=== PATIENT | female | born 1995 | race Caucasian/White ===

== ENCOUNTER 2019-05-22 08:32 | Inpatient (IN) ==
[2019-05-22 08:18] LABS: Basophils % 0.3 %; Eosinophils # 0.1 K/mcL (0.0-0.6); Eosinophils % 0.7 %; Hematocrit 34.6 % (35.3-44.9); Lymphocytes # 1.6 K/mcL (0.6-4.6); Lymphocytes % 16.3 %; Mean Corpuscular HGB Conc 34.7 g/dL (31.6-35.5); Mean Corpuscular Volume 89.4 fL (83.0-100.0); Mean Platelet Volume 10.3 fL (9.4-12.4); Monocytes # 0.8 K/mcL (0.0-1.3); Neutrophils # 7.3 K/mcL (1.6-8.9); Platelet Count 179 K/mcL (140-400); Red Blood Count 3.87 M/mcL (3.82-4.97); Red Cell Distribution Width 12.6 % (11.5-14.5); Segmented Neutrophils % 73.7 %; White Blood Count 9.9 K/mcL (4.3-11.1)
[~2019-05-22 08:32] MED LIST: Famotidine 20 MG/2 ML VIAL IVP PRN; Lidocaine 1% 20 ML MDV ID PRN; Metoclopramide 10 MG/2 ML VIAL IVP PRN; Naloxone 0.4 MG/ML INJ IVP PRN; Ondansetron 4 MG/2 ML VIAL IVP PRN; Oxytocin 20 units/ LR 1000 mL 20 UNIT/1,000 ML BAG IVC SCH
[2019-05-22] MEDS ORDERED: *HR* Nalbuphine 10 MG/ML AMPUL IV PRN (08:38)
[2019-05-22] MEDS: Ringers Solution, Lactated 1,000 ML IVC SCH ×2 (09:05→13:59)
[2019-05-22 09:23] LABS: Amphetamine Screen,Urine Negative ng/mL (Cutoff=1000); Barbiturate Screen,Urine Negative ng/mL (Cutoff=200); Benzodiazepines Screen,Urine Negative ng/mL (Cutoff=200); Cannabinoid Screen,Urine Negative ng/mL (Cutoff = 50); Cocaine Screen,Urine Negative ng/mL (Cutoff= 300); Opiate Screen,Urine Negative ng/mL (Cutoff=300); Phencyclidine Screen,Urine Negative ng/mL (Cutoff=25)
[2019-05-22] MEDS ORDERED: *HR* FentaNYL (PF) 100 MCG/2 ML VIAL EP ONE (13:08)
[2019-05-22] MEDS ORDERED: Bupivacaine-MPF 0.25% 10 ML VIAL EP ONE (13:08)
[2019-05-22] MEDS ORDERED: EPHEDrine 50 MG/ML VIAL IVP PRN (13:08)
[2019-05-22] MEDS ORDERED: Epidural Premix (fent/bupiv) 110 ML EP SCH (13:15)
[2019-05-23] MEDS ORDERED: Oxytocin 20 units/ LR 1000 mL 20 UNIT/1,000 ML BAG IVC SCH (01:13)
[2019-05-23] MEDS: Prenatal Vit/FA 1 EACH TABLET PO SCH (08:27)
[2019-05-23] MEDS: Ibuprofen 600 MG TABLET PO SCH ×2 (08:27→21:36)
[2019-05-23] MEDS: Acetaminophen 325 MG TABLET PO SCH (21:37)
[2019-05-24] MEDS: Ibuprofen 600 MG TABLET PO SCH ×2 (00:08→08:12)
[2019-05-24] MEDS ORDERED: Lanolin 7 G OINT...G. TP PRN (01:40)
[2019-05-24 08:00] VITALS: BP 106/66
[2019-05-24] MEDS: Acetaminophen 325 MG TABLET PO SCH (08:13)
[2019-05-24] MEDS: Prenatal Vit/FA 1 EACH TABLET PO SCH (08:56)
== END 2019-05-24 13:55 | disposition home or self-care (01) | DRG 560 ==
LOC: 1NENULAB → 1NENUOBS 05-23 01:19
PROVIDERS: ADMIT Obstetrics & Gynecology; ATTEND Obstetrics & Gynecology